=== PATIENT | male | born 1990 | race Caucasian/White ===

== ENCOUNTER 2020-12-12 00:54 | Emergency (ER) | payer SELFPAY ==
[2020-12-12 00:56] VITALS: BP 150/101; PULSE 96; RESP 17; TEMP 36.6; O2SAT 100; BMI 25.9
[2020-12-12 01:00] VITALS: BP 146/101
--- NOTE | 2020-12-12 01:11 | ED.VIS.GEN ---
History of Present Illness Chief Complaint: Abd Pain Informant: Patient Onset: Days - 3 days Context: Gradual Onset Current Severity: Mild Maximum Severity: Moderate Narrative: Patient presents with epigastric abdominal pain with nausea, vomiting, and diarrhea. Symptoms of been ongoing for the past 3 days. He does report having some chills. He states the first couple times he vomited he had a small amount of blood in the vomitus. None since. No blood in the stool. Patient reports problems with an ulcer and reflux disease as a child but not as an adult. Past Medical History - Allergies and Home Meds Allergies/Adverse Reactions: Allergies amoxicillin Adverse Reaction (Verified 12/12/20 00:55) Hives Primary Care Physician: Patience Chacko MD [STAFF PHYSICIAN] - As Needed Past Medical History: None Smoking Status: Current every day smoker Review of Systems General: Reports: Chills. Denies: Fever Eyes: Denies: Visual changes - bilaterally ENT: Denies: Bilateral ear pain Cardiovascular: Denies: Chest pain Respiratory: Denies: Dyspnea, Cough Gastrointestinal: Reports: Abdominal pain, Nausea, Vomiting, Diarrhea Genitourinary: Denies: Dysuria Musculoskeletal: Denies: Swelling, Extremity Pain Skin: Denies: Rash Neurological: Denies: Headache Hematologic: Denies: Easy bruising, Easy bleeding Allergy: Denies: Uticaria Physical Exam Vital Signs/Narrative: Vital Signs Temp Pulse Resp BP Pulse Ox 12/12/20 01:00 146/101 H 12/12/20 00:56 97.8 F 96 17 150/101 H 100 Inital Vital Signs reviewed: Yes General: Well nourished, Well developed Head: Normocephalic ENT: Moist mucous membranes Neck: Supple Cardiovascular: Regular rate, Regular rhythm Respiratory: No distress, CTA bilaterally Abdomen: Soft, Tender - Mild epigastric tenderness, Hypoactive bowel sounds. Negative for: Guarding, Rebound tenderness Skin: Normal color Neurological: Alert, Oriented x3 Psychological: Normal affect Diagnostic/Tx/Re-eval Laboratory Results 12/12/20 12/12/20 01:05 01:05 WBC 12.2 H RBC 5.43 Hgb 15.5 Hct 47.5 MCV 87.5 MCH 28.5 MCHC 32.6 RDW Std Deviation 39.9 RDW Coeff of Radha 12.4 Plt Count 342 MPV 10.2 Immature Gran % (Auto) 0.300 Neut % (Auto) 62.6 Lymph % (Auto) 23.2 [place] % (Auto) 11.8 H Eos % (Auto) 1.6 Baso % (Auto) 0.5 Absolute Neuts (auto) 7.6 Absolute Lymphs (auto) 2.82 Nucleated RBC % 0 Sodium 137 Potassium 4.1 Chloride 101 Carbon Dioxide 30.0 Anion Gap 6 BUN 14 Creatinine 1.13 Estim Creat Clear Calc 104.92 Est GFR (MDRD) Af Amer 98 Est GFR (MDRD) Non-Af 81 BUN/Creatinine Ratio 12.4 Glucose 78 Calcium 9.4 Total Bilirubin 0.40 Direct Bilirubin 0.16 AST 26 ALT 53 Alkaline Phosphatase 66 Total Protein 8.2 Albumin 4.0 Globulin 4.2 Lipase 77 - Medical Decision Making Patient was given IV fluids, Zofran, Protonix. White blood cell count is slightly elevated but no left shift is noted. Remainder of chemistry studies, lipase, LFTs normal. On repeat examination patient reports more burning sensation than anything else. He will be given prescription for Prilosec. He is provided PCP information for follow-up. ED Disposition - Plan for ED Patient: Disposition: Home or Assisted Living Diagnosis: Gastritis Instructions: ED Gastritis (Adult) Prescriptions: Omeprazole [Prilosec] 20 mg PO DAILY #30 capsule Transmission Status: Received by [id number] Referrals: Patience Chacko MD [STAFF PHYSICIAN] - As Needed
[2020-12-12 01:16] LABS: Absolute Lymphocyte Count 2.82 X10^3/uL (0.83-4.51); Absolute Neutrophil Count 7.6 X10^3/uL (2.0-7.7); Basophil# 0.06 X10^3/uL; Basophil% 0.5 % (0-1); Eosinophils% 1.6 % (0-5); Hematocrit 47.5 % (40-54); Hemoglobin 15.5 g/dL (13.0-16.5); Lymphocyte # 2.82 X10^3/ul (0.83-4.51); Lymphocyte % 23.2 % (19-41); Mean Corp Hgb Conc 32.6 g/dL (32-36); Mean Corpuscular Hgb 28.5 pg (27.0-32.0); Mean Corpuscular Volume 87.5 fL (80-94); Mean Platelet Vol. 10.2 fl (6.2-12.0); Monocyte# 1.44 X10^3/uL; Monocyte% 11.8 % (0-10); NRBC Flagged by Analyzer 0 % (0-5); Neutrophil % 62.6 % (47-70); Platelet Count 342 K/mm3 (150-450); RBC Distribution Width CV 12.4 % (11.6-14.6); RBC Distribution Width SD 39.9 fl (35.1-43.9); Red Blood Count 5.43 M/mm3 (4.6-6.2); White Blood Count 12.2 K/mm3 (4.4-11.0)
[2020-12-12] MEDS: Ondansetron 4 MG/2 ML Vial IV (01:26)
[2020-12-12] MEDS: 0.9% Normal Saline 1,000 ML 1000 ML IV (01:26)
[2020-12-12 01:31] LABS: AST(SGOT) 26 U/L (15-37); Alanine Aminotransfer ALT/SGPT 53 U/L (16-61); Alkaline Phosphatase 66 U/L (45-117); Anion Gap 6 (5-15); BUN 14 mg/dL (7-18); BUN/Creat Ratio 12.4 RATIO (10-20); Bilirubin, Direct 0.16 mg/dL (0.00-0.30); Calcium,Total 9.4 mg/dL (8.5-10.1); Chloride 101 mmol/L (98-107); Creatinine, Serum 1.13 mg/dL (0.70-1.30); EST Glomerular Filtration Rate 81 mL/min (>60); Est Glom Filt Rate - Afr Amer 98 mL/min (>60); Estimated Creatinine Clearance 104.92 ml/min; Globulin 4.2 g/dL (2.2-4.2); Glucose 78 mg/dL (74-106); Lipase 77 U/L (73-393); Potassium 4.1 mmol/L (3.5-5.1); Protein, Total 8.2 g/dL (6.4-8.2); Sodium Level 137 mmol/L (136-145)
[2020-12-12 02:30] VITALS: BP 108/74; PULSE 62; RESP 15; O2SAT 99
== END 2020-12-12 02:31 | disposition home or self-care (01) ==
PROVIDERS: Emergency Provider Emergency Medicine
DX: K29.70 Gastritis, unspecified, without bleeding (principal); K21.9 Gastro-esophageal reflux disease without esophagitis; F17.200 Nicotine dependence, unspecified, uncomplicated
CPT/HCPCS: 80048; 80076; 83690; 85025; 96365; 96375; 99283; J7030; J2405

== ENCOUNTER 2023-06-17 19:26 | Emergency (ER) | payer MEDICAID, SELFPAY ==
[2023-06-17 19:27] VITALS: BP 130/89; PULSE 85; RESP 15; TEMP 36.7; O2SAT 97; BMI 24.4
--- NOTE | 2023-06-17 19:59 | EDS_ITS ---
HPI <RAPHAEL Dewitt - Last Filed: 06/17/23 20:31> History of Present Illness Chief Complaint: Anxiety Narrative Narrative: Patient is a 32-year-old male with history of PTSD, GERD, anxiety who presents the emergency department for ongoing worsening anxiety. Patient has history of polydrug abuse, he has been sober for 3 years. Patient states he has been dealing with a lot of stressors, he is recently relives some more trauma and therapy, and over the last month he has felt out of control. He denies any thoughts of harming himself or others. Patient states that he is just crying all the time, is having difficulty performing in his daily activities as well as his job. He was seen at [facility] in [place], he now has multiple follow-up appointments, he does have a therapist however cannot see the therapist this upcoming week secondary to her having COVID. Patient states that Ativan has been helping however he is only getting minimal number of tabs per prescription. He was unaware that it is a addictive substance. Patient is here with his father. [facility] <RAPHAEL Dewitt - Last Filed: 06/17/23 20:31> [facility] Medical History (Updated 06/17/23 @ 20:29 by RAPHAEL Dewitt) Anxiety Depressed Home Medications omeprazole 20 mg capsule,delayed release 20 mg PO DAILY #30 CAPSULES 12/12/20 [Rx Last Taken Unknown] lorazepam 0.5 mg tablet (Ativan) 0.5 mg PO BID PRN anxiety #10 tabs 06/17/23 [Rx Last Taken Unknown] Allergy/AdvReac Type Severity Reaction Status Date / Time amoxicillin AdvReac Hives Verified 06/17/23 19:31 Social History Smoking Status: Current every day smoker ROS <RAPHAEL Dewitt - Last Filed: 06/17/23 20:31> ROS ED ROS Narrative Constitutional: Negative for fever, chills, weight loss, weakness Eyes: Negative for vision loss, vision change, double vision ENT: Negative for any sore throat, ear pain, congestion Cardiovascular: Negative for any chest pain, tightness, palpitations Respiratory: Negative for any cough, sputum production, hemoptysis, dyspnea, dyspnea on exertion, orthopnea Gastrointestinal: Negative for any abdominal pain, nausea, vomiting, diarrhea, constipation, blood in stool, blood in vomit : Negative for any urinary frequency, dysuria, retention, blood in urine Muscle skeletal: Negative for any muscle joint pain, stiffness, myalgias, arthralgias, neck pain, back pain Neurological: Negative for any headache, syncope, numbness or tingling, dizziness Skin: Negative for any rashes, lumps, itching, abrasions, lacerations Psychiatric: Negative for any suicidal ideation, homicidal ideation. Positive for anxiety, depression, stress Hematologic: Negative for any easy bruising, excessive bruising, easy bleeding Allergies: Negative for any eczema, hives, rash EXAM <RAPHAEL Dewitt - Last Filed: 06/17/23 20:31> Physical Exam Narrative Exam Narrative: Vital signs reviewed. Patient is anxious, tearful. HEET: Head normocephalic atraumatic, TMs clear bilaterally. Posterior pharynx is clear, moist mucous membranes. Nares clear bilaterally. Neck: Supple with no lymphadenopathy or tenderness. No signs of meningismus, negative jolt sign. Cardiac: Regular rate and rhythm no murmurs gallops or rubs, equal peripheral pulses bilaterally. Respiratory: Lungs clear to auscultation bilaterally. No chest tenderness. Abdomen: Soft, nontender, nondistended. No abdominal bruit or pulsatile masses. No hepatosplenomegaly Extremities: No peripheral edema, no signs of gross trauma or deformity. Active full range of motion of all extremities. Neuro: Cranial nerves II through XII intact, no focal neurological deficits. Skin: Clean dry and intact with no rash, purpura, petechiae, vesicles or pustules. Backs/flank: No CVA tenderness, no midline spinal tenderness, no deformity. Psych: Patient is obviously anxious, is frustrated. Patient denies any suicidal homicidal ideation. Const Vital Signs: 06/17/23 19:27 Temperature 98.0 F Temperature Source Temporal Pulse Rate 85 Respiratory Rate 15 Blood Pressure 130/89 H Blood Pressure Mean 102 Pulse Ox 97 Oxygen Delivery Method Room Air Positive well nourished and well developed General Appearance ED: well developed <Dr. Kenny Burgos MD - Last Filed: 06/17/23 20:29> Physical Exam Const Vital Signs: 06/17/23 19:27 Temperature 98.0 F Temperature Source Temporal Pulse Rate 85 Respiratory Rate 15 Blood Pressure 130/89 H Blood Pressure Mean 102 Pulse Ox 97 Oxygen Delivery Method Room Air [facility] <RAPHAEL Dewitt - Last Filed: 06/17/23 20:31> [facility] Treatment and Re-Evaluation :: Patient is alert and orient x4. Vital signs are stable, patient appears nontoxic. Presenting to the emergency department for anxiety. I did speak with the patient at length, patient does appear anxious, he is tearful, frustrated. He is having difficulty with his medications,. Patient does have multiple mental health practitioners. Patient sees a therapist, he is currently following up this Sunday. He states he would just like something to help. Calling out of his skin at this time. Other than marijuana, Effexor, he is not taking any other medications. He does state that Ativan does help however he was unaware that it was an addictive substance. Patient does not relate to me that he is suicidal or homicidal. He does not feel to be a threat to himself or others. Patient be given water as asked, you also be given 1 mg of Ativan p.o. Patient at this time feel safe for discharge. I do believe the patient safe for discharge. There is no evidence of any suicidal homicidal. Patient does not need admitted to the hospital. Patient will follow-up with the counseling center. He will be given ten 0.5 mg Ativan tablets. Patient understands he needs to follow-up outpatient. He understands this will take both medication as well as significant therapy. He understands, patient stable for discharge <Dr. Kenny Burgos MD - Last Filed: 06/17/23 20:29> [facility] Narrative Medical decision making narrative: I have personally performed a face to face assessment of the patient and have reviewed the LAURITA Note. I performed a substantive portion of the visit including all aspects of the following. My luther findings include: History is 32-year-old male history of anxiety. He is looking for mental health help. Denies being homicidal or suicidal. Exam is [well-appearing 32-year-old male. Vital signs stable afebrile. Lungs clear. Heart regular rhythm. Abdomen soft nontender. Moving all 4 extremities. Neurologically is awake alert. He is emotionally upset. But he makes eye contact. He answers questions and follows commands.] Medical Decision Making [treated with p.o. Ativan. Outpatient follow-up with the counseling center. Limited prescription for Ativan.] Other additions or changes: [None] History & Record Review Discussion w/independent historian: Patient and Family Discharge Plan Triage Chief Complaint: Anxiety ED Midlevel Provider: Sal Devine ED Provider: Kenny Burgos Dx/Rx/DC Orders Clinical Impression: Anxiety, Depression Instructions: ED Anxiety Reaction, ED Depression Prescriptions: New lorazepam [Ativan] 0.5 mg tablet 0.5 mg PO BID PRN (Reason: anxiety) Qty: 10 0RF No Action omeprazole 20 MG capsule 20 mg PO DAILY Qty: 30 0RF Primary Care Provider: Care Physician,No Primary Referrals: Care Physician,No Primary [Primary Care Provider] - Counseling,Center [Group of Physicians] - Activity Restrictions/Additional Instructions: Please continue following up outpatient. Make sure that you see your therapist. Take the Ativan as needed. Disposition Disposition: Home, Self Care
[2023-06-17] MEDS: LORazepam 1 MG Tablet PO (20:03)
== END 2023-06-17 20:35 | disposition home or self-care (01) ==
PROVIDERS: Emergency Provider Emergency Medicine; Visit Provider Emergency Medicine
DX: F41.9 Anxiety disorder, unspecified (principal); F32.A Depression, unspecified; F17.200 Nicotine dependence, unspecified, uncomplicated
CPT/HCPCS: 99282

== ENCOUNTER 2023-07-18 15:54 | Emergency (ER) | payer MEDICAID, SELFPAY ==
[2023-07-18 15:55] VITALS: BP 135/84; PULSE 89; RESP 16; TEMP 36.4; O2SAT 100; BMI 24.7
--- NOTE | 2023-07-18 16:23 | CT_ITS ---
STUDY: CT BRAIN WITHOUT CONTRAST REASON FOR EXAM: Male, 32 years old. headache RADIATION DOSAGE (If Supplied By Facility): CTDIvol = ( 44.99 ) mGy, DLP = ( 796.11 ) mGycm TECHNIQUE: Transaxial CT imaging of the brain was performed without administration of intravenous contrast material. Individualized dose optimization techniques were used for this CT. COMPARISON: No relevant priors. FINDINGS: Normal soft tissue structures. Normal calvarium. Normal size ventricles and extra-axial spaces for the patient''s age. Normal white matter tracts of the cerebral hemispheres. Normal basal ganglia and thalami. Normal brainstem. Normal cerebellum. There is no intracranial hemorrhage. There are no findings of an acute ischemic infarction. There is mucoperiosteal inflammatory disease of the maxillary sinus consistent with mild chronic sinusitis. CT/Brain/Head without Contrast IMPRESSION: Normal unenhanced CT scan of the brain. Electronically Signed: Chris Macias MD ([place]) at 17:10 EST ,
--- NOTE | 2023-07-18 16:23 | EX.ED.VIS.HA ---
HPI History of Present Illness Chief Complaint: Headache Informant: patient Narrative Narrative: Worsening nontraumatic headache since yesterday. Kenneth initially pain in his forehead now generalized. Today photophobia and phonophobia. History of migraines. Does use Excedrin and ibuprofen no relief. Per states new symptoms of feeling fluid into his head is concerning. He states also overnight was told he had a night terror event that he typically remembers when he is having the past and he did not remember this 1. He is concerned that this happened. Denies any cardiac history. History of anxiety and depression along with his night terrors. History of migraines. [facility] Medical History Anxiety Depressed Home Medications omeprazole 20 mg capsule,delayed release 20 mg PO DAILY #30 CAPSULES 12/12/20 [Rx Last Taken Unknown] lorazepam 0.5 mg tablet (Ativan) 0.5 mg PO BID PRN anxiety #10 tabs 06/17/23 [Rx Last Taken Unknown] venlafaxine 150 mg capsule,extended release 24 hr 150 mg PO DAILY 06/17/23 [History Last Taken Unknown] Allergy/AdvReac Type Severity Reaction Status Date / Time amoxicillin AdvReac Hives Verified 06/17/23 19:31 Social History Smoking Status: Current every day smoker tobacco type: cigarettes ROS ROS ED Constitutional Constitutional ED: Denies chills, fever(s) or sweats Eyes Eyes: Denies change in vision ENT ENT ED: Denies dysphagia or sore throat Cardiovascular Cardiovascular: Denies chest pain, leg edema, palpitations or racing heartbeat Respiratory/Chest Respiratory/Chest: Denies cough, dyspnea or dyspnea on exertion Gastrointestinal Gastrointestinal: Denies abdominal pain, diarrhea, nausea or vomiting Genitourinary Genitourinary ED: Denies dysuria, hematuria or urinary frequency Musculoskeletal Musculoskeletal: Denies back pain, extremity pain or neck pain Integumentary Denies rash or wounds Neurologic Neurologic: Reports headache(s); Denies paresthesias or weakness EXAM Physical Exam Const Vital Signs: 07/18/23 15:55 Temperature 97.6 F L Temperature Source Temporal Pulse Rate 89 Respiratory Rate 16 Blood Pressure 135/84 H Blood Pressure Mean 101 Pulse Ox 100 Oxygen Delivery Method Room Air Positive well nourished and well developed General Appearance ED: well developed and NAD HEENT Reports moist mucous membranes normocephalic and atraumatic Eyes PERRL, EOMs intact bilaterally and conjunctivae normal Eyes Narrative: No photophobia. General Eye ED: Yes normal appearance of both eyes Neck no lymphadenopathy, supple and no meningeal signs General: Negative for tenderness Chest Wall Chest: Negative for tenderness Resp normal respiratory effort and normal air movement Effort and Inspection: symmetric chest movement; Negative for respiratory distress Cardio regular rate, regular rhythm and no murmurs Peripheral Pulses: pulses 2+ throughout GI normal to inspection, nondistended, normoactive bowel sounds and non-tender Palpation: Negative for guarding or rebound tenderness present Back/Spine no CVA tenderness and no thoracic nor lumbar tenderness Extremity normal to inspection General Extremety ED: Negative for edema or tenderness General Extremity: Negative for edema Neuro oriented x3, CN's II-XII intact bilaterally and no sensory deficits noted Sensorium / Orientation: awake and alert Skin no rashes or lesions noted and no wounds MDM MDM MDM Narrative Medical decision making narrative: Interventions / MDM: Differential diagnosis: Migraine headache Diagnosis considered but do not suspect: N/A My EKG interpretation: N/A Imaging independently reviewed and interpreted by myself: CT brain: External documents reviewed: N/A Test considered but not ordered:N/A ED course: Patient nontoxic, no focal deficit on exam. No meningismus. Presented with migraine symptoms. Discussed treatment with Imitrex with side effects which she agreed. However is concerned with his night terror event that he did not recall with feeling of fluid in his head. Risks and benefits of CT scan discussed with like to pursue with CT brain for further evaluation. 1655: Patient currently over at CT department for his image studies. Patient signed out to Dr. Case for disposition. Re-evaluation: stable Disposition discussed with patient/family/significant other: patient Case discussed with consulting clinician: N/A This note was generated with [employer] dictation software. It may contain incorrect words, spelling, and punctuation that were not noted in checking the note before signing. Discharge Plan Triage Chief Complaint: Headache ED Provider: Matthew Doshi Dx/Rx/DC Orders Clinical Impression: History of night terrors, Headache, migraine Instructions: ED, Migraine (Classical) Prescriptions: No Action omeprazole 20 MG capsule 20 mg PO DAILY Qty: 30 0RF lorazepam [Ativan] 0.5 mg tablet 0.5 mg PO BID PRN (Reason: anxiety) Qty: 10 0RF venlafaxine 150 mg capsule,extended release 24hr 150 mg PO DAILY Primary Care Provider: Care Physician,No Primary Referrals: Miguel Galeana MD [Non-Staff -Ordering Privileges] - 1 Week Care Physician,No Primary [Primary Care Provider] -
[2023-07-18] MEDS: SUMAtriptan 6 MG/0.5 ML Vial SC (16:37)
== END 2023-07-18 17:40 | disposition home or self-care (01) ==
PROVIDERS: Emergency Provider Emergency Medicine; Visit Provider Emergency Medicine
DX: G43.909 Migraine, unspecified, not intractable, without status migrainosus (principal); F17.210 Nicotine dependence, cigarettes, uncomplicated; F41.9 Anxiety disorder, unspecified; F32.A Depression, unspecified; Z79.899 Other long term (current) drug therapy; F51.4 Sleep terrors [night terrors]
CPT/HCPCS: 70450; 96372; 99282; J3030